=== PATIENT | male | born 1975 | race Caucasian/White ===

== ENCOUNTER 2021-07-20 23:28 | Emergency (ER) | payer MEDICARE | END 2021-07-21 04:02 | disposition home or self-care (01) | LOC: ER1 23:28 | DX: S22.059A Unspecified fracture of T5-T6 vertebra, initial encounter for closed fracture (principal); S22.069A Unspecified fracture of T7-T8 vertebra, initial encounter for closed fracture; M54.50 Low back pain, unspecified; F17.210 Nicotine dependence, cigarettes, uncomplicated; W19.XXXA Unspecified fall, initial encounter | CPT/HCPCS: 72128; 72131; 96372; 99284; J1170; J2270 ==

== ENCOUNTER 2021-07-21 11:41 | Emergency (ER) | payer MEDICARE | END 2021-07-21 17:50 | disposition short-term general hospital (02) | LOC: ER1 11:41 | DX: S22.059A Unspecified fracture of T5-T6 vertebra, initial encounter for closed fracture (principal); S22.069A Unspecified fracture of T7-T8 vertebra, initial encounter for closed fracture; M45.4 Ankylosing spondylitis of thoracic region; E11.40 Type 2 diabetes mellitus with diabetic neuropathy, unspecified; F17.210 Nicotine dependence, cigarettes, uncomplicated; Z79.4 Long term (current) use of insulin; Z90.49 Acquired absence of other specified parts of digestive tract; W01.0XXA Fall on same level from slipping, tripping and stumbling without subsequent striking against object, initial encounter | CPT/HCPCS: 72141; 72146; 72148; 96374; 99284; J1170 ==